=== PATIENT | male | born 2000 | race Caucasian/White ===

== ENCOUNTER 2024-07-26 11:47 | Emergency (ER) | payer OTHER ==
[~2024-07-26] VITALS: Ht 185.4 cm; Wt 89.4 kg
[2024-07-26] MEDS ORDERED: CHILDREN'S ALLER5 M1 PO (11:57)
[2024-07-26] MEDS ORDERED: VENTOLIN HFA18 GM INH (11:57)
[2024-07-26 15:17] VITALS: BP 136/74
== END 2024-07-26 15:17 | disposition home or self-care (01) ==
LOC: ED 11:47
DX: M25.512 Pain in left shoulder (principal); R10.30 Lower abdominal pain, unspecified; Z79.899 Other long term (current) drug therapy
CPT/HCPCS: 73030; 99283

== ENCOUNTER 2024-12-21 08:31 | Emergency (ER) | payer OTHER ==
[~2024-12-21] VITALS: Ht 185.4 cm; Wt 89.8 kg
[~2024-12-21 08:31] MED LIST: CHILDREN'S ALLER5 M1 PO; VENTOLIN HFA18 GM INH
[2024-12-21] MEDS ORDERED: 24HOUR ALLERGY10 MG PO (08:37)
[2024-12-21] MEDS ORDERED: ADVAIR 250-501 EACH INH (09:20)
[2024-12-21 09:27] VITALS: BP 150/83
== END 2024-12-21 09:29 | disposition home or self-care (01) ==
LOC: ED 08:31
DX: B34.9 Viral infection, unspecified (principal); J45.909 Unspecified asthma, uncomplicated; Z79.899 Other long term (current) drug therapy
CPT/HCPCS: 87651; 99283

== ENCOUNTER 2024-12-27 05:57 | Emergency (ER) | payer OTHER ==
[~2024-12-27] VITALS: Ht 185.4 cm; Wt 89.8 kg
[~2024-12-27 05:57] MED LIST changes: +24HOUR ALLERGY10 MG PO; +ADVAIR 250-501 EACH INH
--- OUTSIDE RECORDS SUMMARY | 2024-12-27 06:03 | XMS ---
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 Cynthia VISIT COUNT (12 MO.) 3 KARUNA Howell TOTAL 3 NOTE: Visits indicate total known visits. 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
[2024-12-27] MEDS ORDERED: KETOROLAC TROMETHAMINE 60 MG/2 ML VIAL IM ONE (06:15)
[2024-12-27] MEDS ORDERED: PSEUDOEPHEDRINE HCL 30 MG TAB PO ONE (06:15)
[2024-12-27] MEDS ORDERED: predniSONE 20 MG TAB PO ONE (06:15)
[2024-12-27] MEDS ORDERED: ALBUTEROL/IPRATROPIUM 3 ML NEB INH ONE (06:15)
[2024-12-27] MEDS ORDERED: ONDANSETRON 4 MG TAB ODT SL ONE (06:30)
[2024-12-27 06:48] LABS: INFLUENZA B NAA NEGATIVE (NEGATIVE); RESPIRATORY SYNCYTIAL VIR NAA NEGATIVE (NEGATIVE)
[2024-12-27] MEDS ORDERED: ONDANSETRON ODT8 MG PO (06:59)
[2024-12-27] MEDS ORDERED: NASAL DECONGEST30 MG PO (06:59)
[2024-12-27] MEDS ORDERED: CYCLOBENZAPRINE10 MG PO (06:59)
[2024-12-27] MEDS ORDERED: BENZONATATE100 MG PO (06:59)
[2024-12-27 07:15] VITALS: BP 142/74
[2024-12-27] MEDS ORDERED: ONDANSETRON 4 MG HOME.PACK SL ONE (07:15)
[2024-12-27] MEDS ORDERED: CYCLOBENZAPRINE HCL 10 MG HOME.PACK PO ONE (07:15)
[2024-12-27] MEDS ORDERED: INHALER, ASSIST DEVICES 1 EACH SPACER MISC ONE (07:15)
[2024-12-27] MEDS ORDERED: methylPREDNISolone 4 MG HOME.PACK PO ONE (07:15)
[2024-12-27] MEDS ORDERED: ALBUTEROL SULFATE 8 GM HOME.PACK INH ONE (07:15)
== END 2024-12-27 07:15 | disposition home or self-care (01) ==
LOC: ED 05:57
PROVIDERS: Family Medicine
DX: J06.9 Acute upper respiratory infection, unspecified (principal); J45.909 Unspecified asthma, uncomplicated; Z79.899 Other long term (current) drug therapy
CPT/HCPCS: 71045; 87502; 94640; 96372; 99285-25; A9270; J1885; J7512; U0002